=== PATIENT | male | born 1970 | race Caucasian/White ===

== ENCOUNTER 2019-04-09 00:23 | Emergency (ER) | payer MEDICARE, OTHER ==
[2019-04-09 00:47] VITALS: BP 167/91
--- NOTE | 2019-04-09 00:56 | ED Physician Documentation ---
General Adult - HPI Stated Complaint: pain in left great toe Chief Complaint: Lower Extremity Problem Onset: days ago (2) Timing: worse Severity: moderate Further Comments: yes (He states he had gout a few years back and this feels the same. Pain started yesterday he did take an OTC med this afternoon and it did decreased pain some. No injury. Pain and redness in left great toe) - ROS CONST: no problems - PAST HX Past History: none - SOCIAL HX Smoking History: non-smoker Alcohol Use: none Drug Use: none - FAMILY HX Family History: No - VITAL SIGNS Vital Signs: Vital Signs Temp Pulse Resp BP Pulse Ox 98.3 F 76 18 167/91 98 04/09/19 00:33 04/09/19 00:33 04/09/19 00:33 04/09/19 00:33 04/09/19 00:33 - REVIEWED ASSESSMENTS Nursing Assessment Reviewed: Yes Vitals Reviewed: Yes General Adult Physical Exam - PHYSICAL EXAM GENERAL APPEARANCE: no distress EENT: eye inspection normal, no signs of dehydration NECK: normal inspection RESPIRATORY: no resp distress, chest non-tender, breath sounds normal CVS: reg rate & rhythm, heart sounds normal ABDOMEN: soft, no distension, non-tender BACK: normal inspection SKIN: warm/dry EXTREMITIES: non-tender, tenderness (left great toe redness FROM (pain with standing or walking) Pulses + sensation + no obvious injury ) NEURO: oriented X3 Discharge Clincal Impression: Gout Qualifiers: Gout site: foot Gout etiology: unspecified cause Chronicity: acute Laterality: left Qualified Code(s): M10.9 - Gout, unspecified Referrals: Primary Doctor,No [Primary Care Provider] - 2 Days Comments: 1. Colchincine 0.6 mg take 2 day 1 and then 1 daily x 10 days or until cleared 2. Allopurinol 100 mg take 1 by mouth daily x 10 days (script) 3. Elevate and ice for comfort 4. Follow up with PCP In 2-4 fdays 5. Return to ER for any increasing concerns Condition: Stable Decision to Admit: NO Date of Decison to Admit: 04/09/19 Decision Time: 01:09
[2019-04-09] MEDS ORDERED: ALLOPURINOL 100 MG TABLET PO ONE (01:03)
== END 2019-04-09 01:12 | disposition home or self-care (01) ==
LOC: ED 00:23
DX: M10.9 Gout, unspecified (principal)
CPT/HCPCS: 99283